=== PATIENT | male | born 1965 | race Caucasian/White ===

== ENCOUNTER → 2023-11-14 09:14 | Outpatient (REF) | payer SELFPAY | LOC: HWRAD 09:14 | PROVIDERS: ATTENDING PHYSICIAN Nurse Practitioner Family | DX: E78.5 Hyperlipidemia, unspecified (principal); R89.9 Unspecified abnormal finding in specimens from other organs, systems and tissues; Z68.43 Body mass index [BMI] 50.0-59.9, adult | CPT/HCPCS: 75571 ==

== ENCOUNTER → 2023-12-03 06:23 | Day surgery (SDC) | payer OTHER, SELFPAY ==
[2023-12-03 07:36] LABS: Glucose - Point of Care 133 mg/dl (70-99)
== END ==
LOC: GI 06:23
PROVIDERS: ATTENDING PHYSICIAN Surgery
DX: Z12.11 Encounter for screening for malignant neoplasm of colon (principal); R19.5 Other fecal abnormalities; D12.3 Benign neoplasm of transverse colon; D12.5 Benign neoplasm of sigmoid colon
CPT/HCPCS: 45385; 88305; 82962

== ENCOUNTER 2024-10-02 12:54 | Emergency (ER) | payer OTHER, SELFPAY ==
[2024-10-02] VITALS (10 sets, daily range): BP systolic 111–165; BP diastolic 60–133; PULSE 74–80; O2SAT 97; BMI 51.1
[2024-10-02 13:12] LABS: Glucose - Point of Care 133 mg/dl (70-99)
--- NOTE | 2024-10-02 13:18 | EDRN ---
Olivia Rucker PA in to see pt.
--- NOTE | 2024-10-02 13:19 | ED.GENMED ---
History of Present Illness
General
Chief Complaint: Fainting/Passed Out
Source: patient
Time Seen by Provider: 10/02/24 13:09
History of Present Illness
History of Present Illness:
58-year-old male with past medical history of hypertension, hyperlipidemia and xtl-[id number]-mcyudivyp diabetes presenting to the emergency department for evaluation of vertigo-like syndrome that is been ongoing for the last week, not any different
today however her primary care wanted evaluated at the emergency department. Patient states about 2 or 3 weeks ago he had a upper respiratory illness which seems to have fully resolved. He notes that the dizziness is relatively constant but made
worse with movement and seems to be positional as well. Patient was brought immediately back into the emergency department after he got up from the waiting room to walk to the triage [place] and had a witnessed syncopal event but patient did not fall
to the ground.At time of my exam patients symptoms much improved although still notes the vertigo sensation. Patient denies any chest pain, headache, focal weakness or numbness, neck pain or stiffness or any other concerns presently.
Past History
Past History
ED Past Medical History: HTN, Hypercholesterolemia and NIDDM
ED Past Surgical History: None
Social History
Tobacco: Non-smoker
Alcohol: Occasional
Drug: None
Personal:
Living: with family
Review of Systems
Review of Systems
All Other Systems: ROS reviewed and negative except as documented in HPI and ROS
Phy Exam
Physical Exam
Physical Exam:
GENERAL: Alert , in no apparent distress
EYE: pupils equal and reactive, EOMI, leftward beating nystagmus
NECK: Supple, full range of motion
ENT: o/p clr, mmm.
CARDIAC: Regular rate and rhythm, no murmur .
LUNGS: Clear breath sounds bilaterally, no acute respiratory distress, no wheezes/rales/rhonchi
ABDOMEN: Soft, without focal tenderness, no r/g, no cvat
NEUROLOGICAL: Alert and oriented, moves all extremities, no sensory deficits, no ataxia, no dysmetria or dysarthria
SKIN: Warm and dry, skin intact.
MUSCULOSKELETAL: No edema, well perfused.
PSYCH: Normal and appropriate interaction.
Scores
Heart Failure Risk
Heart Failure Risk Score: Not Applicable
Heart Score for Chest Pain Patients
STEMI patient?: Not applicable
Withdrawal Assessment of Alcohol
Withdrawal Assessment Completed?: Not applicable
Course
Orders/Labs/Results
Orders:
Orders
10/02/24 12:57
Electrocardiogram (*1) Urgent
Reason for Study: Chest Pain
EKG- Treatment ONCE
10/02/24 13:15
CT Head W/o Iv Contrast Urgent
Comment:
Reason For Exam: vertigo
Orthostatic VS- Treatment ONCE
0.9% Sodium Chloride 1000 ml [Nss] 1,000 ml IV BOLUS
Meclizine [Antivert] 25 mg PO NOW STA
PT Consult [Pt Eval And Treat] Urgent
Treatment: vertigo
Activity Level: Ambulate
10/02/24 13:18
Basic Metabolic Panel Urgent
Complete Blood Count/With Diff Urgent
Abnormal Lab Results
10/02/24 10/02/24
13:11 13:18
WBC 12.7 H 10^3/uL
(4.8-10.8)
MCH 31.9 H pg
(27.0-31.0)
Abs Immat Gran (auto) 0.1 H 10^3/uL
(0-0.05)
Absolute Neuts (auto) 8.5 H 10^3/uL
(1.4-6.5)
Absolute Monos (auto) 0.7 H 10^3/uL
(0.1-0.6)
Glucose 127 H mg/dl
(70-99)
POC Glucose 133 H mg/dl
(70-99)
10/02/24 13:18
10/02/24 13:18
Vital Signs
Initial and Last Documented VS:
Initial Vital Signs
Pulse Resp BP Pulse Ox
71 13 142/76 97
10/02/24 13:09 10/02/24 13:09 10/02/24 13:09 10/02/24 13:09
Last Documented Vital Signs
Temp Pulse Resp BP Pulse Ox
98.1 F 66 16 111/64 96
10/02/24 13:12 10/02/24 14:30 10/02/24 14:30 10/02/24 13:34 10/02/24 14:30
MDM/Problems Addressed
Differential Diagnosis Includes:
Vagal event, cardiac dysrhythmia/arrhythmia, labyrinthitis, BPPV, electrolyte derangement, CVA
MDM/Problems Addressed:
58-year-old male presenting to the ER for evaluation of vertiginous symptoms that been ongoing for the last week. During the triage portion of the visit patient appeared to have a vagal event, asymptomatic at time of my exam outside of continues
with the mild vertigo that worsens with head movements. Leftward beating nystagmus noted. Given recent URI and the leftward nystagmus with extraocular movements I suspect labyrinthitis is the most likely diagnosis. Will check labs, CT of the
head, EKG. Antivert ordered for symptomatic relief. Physical therapy consult ordered for vertiginous/vestibular therapy
Chronic conditions affecting care: DM and HTN
*Radiology
Radiology exam reviewed: radiology read reviewed
*Pulse Oximetry
Patient hypoxic: no
*EKG
Comparison EKG: no changes
Heart Rate: 77
Rate: normal
Rhythm: sinus
Ischemia: non-specific ST changes
*Bread Dough Mixer Interpretation
Rate: normal
Rhythm: sinus
*Critical Care Note
Total Time (30-74mins, 75-104mins- exclusive of procedures): Not Applicable
Patient Management
Escalation/DeEscalation of care consider admission/obs:
Patient seen by physical therapy and they agree that symptoms seem to be more peripherally related as patient had significant symptom with leftward [place]-Hallpike. They recommend continued outpatient vestibular therapy. Patient still notes that he
does have some mild vertigo however no ataxia. Will send home with prescription for meclizine and Zofran. Prescription for outpatient vestibular therapy provided. Stable for discharge home.
ED Attending Note
-
Portions of this chart may have been created with voice recognition software.� Occasional wrong word or��sound alike� substitutions may have occurred due to the inherent limitations of voice recognition software.
Discharge Plan
Departure
Patient Disposition: Home (Routine Discharge)
Date of Disposition: 10/02/24
Time of Disposition: 15:43
Patient with high blood pressure during this ER visit?: No
Discharge Problem:
Labyrinthitis
Instructions: Labyrinthitis
Prescriptions:
New
meclizine 25 mg tablet
25 mg PO BID PRN (Reason: dizziness) Qty: 15 0RF
ondansetron 4 mg tablet,disintegrating
4 mg PO TIDPRN PRN (Reason: nausea/vomiting) Qty: 10 0RF
Referrals:
Lino Hood, DO [Family Provider] -
Interventions
Interventions:
*Risk Screen - Suicide Last Done: 10/02/24 13:12
*General Assessment Last Done: 10/02/24 13:25
*Neglect/Abuse Screening Last Done: 10/02/24 13:12
ED- Fall Risk Assessment Last Done: 10/02/24 13:25
*ED COVID-19 Vaccine History Last Done: 10/02/24 13:25
ED- Cardiac Assessment Last Done: 10/02/24 13:27
ED- Neurological Assessment Last Done: 10/02/24 13:27
Discharge Date and Time
Print Language: [id number]
[2024-10-02 13:30] LABS: % Basophils 0.9 % (0-2); % Eosinophils 1.3 % (0-6); % Immature Granulocytes 0.4 % (0-0.5); % Lymphocytes 24.4 % (20.5-51.1); % Monocytes 5.8 % (1.7-9.3); % Neutrophils 67.2 % (42.2-75.2); Absolute Basophils 0.1 10^3/uL (0-0.2); Absolute Eosinophils 0.2 10^3/uL (0-0.7); Absolute Immature Granulocytes 0.1 10^3/uL (0-0.05); Absolute Lymphocytes 3.1 10^3/uL (1.2-3.4); Absolute Monocytes 0.7 10^3/uL (0.1-0.6); Absolute Neutrophils 8.5 10^3/uL (1.4-6.5); Hematocrit 43.4 % (39.0-52.0); Hemoglobin 15.2 g/dL (13.0-18.0); Mean Corpuscular Hgb 31.9 pg (27.0-31.0); Mean Corpuscular Volume 91.2 fL (80.0-94.0); Mean Platelet Volume 9.3 fL (7.4-10.4); Nucleated Red Blood Cells % 0 % (-); Platelet Count 234 10^3/uL (130-400); Red Blood Cell Count 4.76 10^6/uL (4.70-6.10); Red Cell Dist. Width 12.8 % (11.5-14.5); White Blood Cell Count 12.7 10^3/uL (4.8-10.8)
[2024-10-02 13:54] LABS: Blood Urea Nitrogen 18 mg/dl (9-20); Calcium 9.3 mg/dl (8.4-10.2); Carbon Dioxide 27 mmol/L (22-30); Chloride 101 mmol/L (98-107); Estimated Creatinine Clearance > 125 ml/min; Glucose 127 mg/dl (70-99); Potassium 4.5 mmol/L (3.5-5.1); Sodium 136 mmol/L (135-145); eGFR > 60.00
[2024-10-02] MEDS: ANTIVERT 25 MG PO (14:03)
[2024-10-02] MEDS: NSS 1000 IV (14:03)
== END 2024-10-02 16:31 | disposition home or self-care (01) ==
LOC: EMR 12:54
PROVIDERS: Physician Assistant Medical; EMERGENCY PHYSICIAN Emergency Medicine; FAMILY PHYSICIAN Internal Medicine
DX: H83.09 Labyrinthitis, unspecified ear (principal); I10 Essential (primary) hypertension; E78.00 Pure hypercholesterolemia, unspecified; E11.9 Type 2 diabetes mellitus without complications
CPT/HCPCS: 99284; 70450; 80048; 82962; 85025; 93005

== ENCOUNTER → 2025-05-20 07:28 | Outpatient (REF) | payer OTHER, SELFPAY | LOC: RCS 07:28 | PROVIDERS: ATTENDING PHYSICIAN Nurse Practitioner Family | DX: E11.9 Type 2 diabetes mellitus without complications (principal); E66.01 Morbid (severe) obesity due to excess calories; G47.33 Obstructive sleep apnea (adult) (pediatric); E78.2 Mixed hyperlipidemia; I10 Essential (primary) hypertension | CPT/HCPCS: 93005 ==